=== PATIENT | female | born 1935 | race Caucasian/White ===

== ENCOUNTER 2020-05-09 13:10 | Observation (INO) | payer MEDICARE, OTHER ==
[~2020-05-09] VITALS: Ht 170.2 cm; Wt 96.9 kg
[2020-05-09] MEDS ORDERED: IV NORMAL SALINE 1,000ML 1,000 ML IV SCH (13:13)
--- NOTE | 2020-05-09 13:14 | PHYS DOC ---
Past History Past Medical History: Asthma, Diabetes Past Medical History thyroid Past Surgical History: Cholecystectomy, Hysterectomy Past Surgical History lumpectomy Smoking: Non-smoker Alcohol Use: None Drug Use: None General Adult EDM: Chief Complaint: DIARRHEA HPI: HPI: Patient is an 85 year old female who presents via EMS for evaluation of diffuse mid and lower abdominal discomfort as well as recurrent episodes of diarrhea. Pt at least 6 diarrhea stools since last night. She describes them as dark brown in color. Patient is in mild to moderate distress on arrival. She is complaining of hot and cold flashes as well as sweats. She denies chest pain but has chronic mild shortness of air. Dr. Soliz is her physician Review of Systems: Review of Systems: Constitutional: Denies fever but has chills Eyes: Denies change in visual acuity HENT: Denies nasal congestion or sore throat Respiratory: Denies cough or shortness of breath Cardiovascular: Denies chest pain or edema GI: has lower abdominal pain, no nausea, vomiting, bloody stools or but has recurrent diarrhea : Denies dysuria Musculoskeletal: Denies back pain or joint pain Integument: Denies rash Neurologic: Denies headache, focal weakness or sensory changes Endocrine: Denies polyuria or polydipsia Lymphatic: Denies swollen glands Psychiatric: Denies depression or anxiety Heart Score: Risk Factors: Risk Factors: DM, Current or recent (<one month) smoker, HTN, HLP, family history of CAD, obesity. Risk Scores: Score 0 - 3: 2.5% MACE over next 6 weeks - Discharge Home Score 4 - 6: 20.3% MACE over next 6 weeks - Admit for Clinical Observation Score 7 - 10: 72.7% MACE over next 6 weeks - Early Invasive Strategies Physical Exam: PE: Constitutional: Well developed, well nourished, moderate acute distress, non- toxic appearance. [] HENT: Normocephalic, atraumatic, bilateral external ears normal, oropharynx moist, no oral exudates, nose normal. [] Eyes: PERRL, EOMI, conjunctiva normal, no discharge. [] Neck: Normal range of motion, no tenderness, supple, no stridor. [] Cardiovascular:Heart rate regular rhythm, no murmur [] Lungs & Thorax: Bilateral breath sounds clear to auscultation [] Abdomen: Bowel sounds diminished, soft, tenderness lower abdomen, no masses, no pulsatile masses. [] Skin: Warm, dry, no erythema, no rash. [] Back: No tenderness. [] Extremities: No tenderness, no cyanosis, no edema. [] Neurologic: Alert and oriented, normal motor function, normal sensory function, no focal deficits noted. [] Psychologic: Affect normal, judgement normal, mood normal. [] Current Patient Data: Labs: Laboratory Tests Test 05/09/20 13:28 05/09/20 14:50 White Blood Count 9.8 x10^3/uL Red Blood Count 4.95 x10^6/uL Hemoglobin 14.5 g/dL Hematocrit 44.7 % Mean Corpuscular Volume 90 fL Mean Corpuscular Hemoglobin 29 pg Mean Corpuscular Hemoglobin Concent 32 g/dL Red Cell Distribution Width 14.5 % Platelet Count 226 x10^3/uL Neutrophils (%) (Auto) 51 % Lymphocytes (%) (Auto) 40 % Monocytes (%) (Auto) 6 % Eosinophils (%) (Auto) 2 % Basophils (%) (Auto) 1 % Neutrophils # (Auto) 5.0 x10^3uL Lymphocytes # (Auto) 3.9 x10^3/uL Monocytes # (Auto) 0.6 x10^3/uL Eosinophils # (Auto) 0.2 x10^3/uL Basophils # (Auto) 0.0 x10^3/uL Sodium Level 142 mmol/L Potassium Level 4.3 mmol/L Chloride Level 104 mmol/L Carbon Dioxide Level 26 mmol/L Anion Gap 12 Blood Urea Nitrogen 21 mg/dL Creatinine 1.4 mg/dL Estimated GFR (Cockcroft-Gault) 35.9 BUN/Creatinine Ratio 15 Glucose Level 117 mg/dL Calcium Level 9.0 mg/dL Total Bilirubin 0.5 mg/dL Aspartate Amino Transf (AST/SGOT) 37 U/L Alanine Aminotransferase (ALT/SGPT) 73 U/L Alkaline Phosphatase 200 U/L Troponin I Quantitative < 0.017 ng/mL Total Protein 6.7 g/dL Albumin 3.6 g/dL Albumin/Globulin Ratio 1.2 Lipase 137 U/L Urine Collection Type Void Urine Color Yellow Urine Clarity Hazy Urine pH 5.0 Urine Specific [place] >=1.030 Urine Protein Neg Urine Glucose (UA) Neg mg/dL Urine Ketones (Stick) Trace mg/dL Urine Blood Neg Urine Nitrite Pos Urine Bilirubin Neg Urine Urobilinogen Dipstick 0.2 mg/dL Urine Leukocyte Esterase Trace Urine RBC Occ /HPF Urine WBC 20-40 /HPF Urine Squamous Epithelial Cells Mod /LPF Urine Bacteria Mod /HPF Current Medications Medications (Trade) Dose Ordered Sig/[place] Route PRN Reason Start Time Stop Time Status Last Admin Dose Admin Sodium Chloride 1,000 ml @ 100 mls/hr Q10H IV 05/09/20 13:13 05/09/20 23:12 05/09/20 13:13 Ceftriaxone Sodium 1 gm/ Sodium Chloride 50 ml @ 100 mls/hr 1X ONCE IV 05/09/20 15:45 05/09/20 16:14 Sodium Chloride 50 ml @ As Directed STK-MED ONCE .ROUTE 05/09/20 15:55 05/09/20 15:55 DC Ceftriaxone Sodium (Rocephin) 1 gm STK-MED ONCE .ROUTE 05/09/20 15:55 05/09/20 15:55 DC EKG: EKG: EKG is normal sinus rhythm, rate 68, leftward axis, otherwise unremarkable EKG, not STEMI read at 1323 PM [] Radiology/Procedures: Radiology/Procedures: [place] [id number] IMAGING REPORT Signed PATIENT: JUSTIN COOPER ACCOUNT: [id number] : 1935 LOCATION: ER AGE: 85 SEX: F EXAM STATUS: REG ER ORD. PHYSICIAN: JHON VERONICA DO REASON: diffuse pain, diarrhea PROCEDURE: CT ABDOMEN PELVIS WO CONTRAST CT of the abdomen and pelvis without contrast 05/09/2020 INDICATION: 85-year-old female with diffuse abdominal pain and diarrhea. COMPARISON STUDY: None available. TECHNIQUE: Multidetector CT imaging of the abdomen and pelvis is obtained without the administration of IV contrast. FINDINGS: Patchy opacities in bilateral lung bases likely represent mild atelectasis. The gallbladder is surgically absent. The liver is otherwise unremarkable. Spleen is unremarkable. Small adrenal nodules noted on the right measuring 1.3 cm in diameter. Attenuation characteristics are nonspecific. Pancreas is unremarkable. There is a 2.1 cm hypodensity arising from the superior left kidney with attenuation characteristics suggestive of a simple cyst. Similar findings are seen in the medial right kidney with a cyst measuring up to 2.2 cm in diameter. Probable small hemorrhagic cyst seen in the superior right kidney measuring up to 8 mm in diameter. There is a 1.9 cm cyst in superior pole of the right kidney. There is no evidence of bowel obstruction. No acute inflammatory change involving the bowel is identified. Diffuse colonic diverticulosis is noted. No CT evidence of acute diverticulitis is seen. The appendix is normal in appearance. There are scattered mesenteric lymph nodes seen throughout the mesentery, somewhat more prominent than is commonly seen. Mildly enlarged lymph nodes are seen in the jen hepatis in the epigastrium. Reference lymph node can be seen on coronal image 47 measuring 1.6 cm in long axis diameter and 1.2 cm in short axis diameter. Mild mesenteric fat stranding is seen surrounding lymph nodes in the left lower quadrant. No acute osseous of abnormality is identified. IMPRESSION: 1. Diffuse mildly prominent mesenteric adenopathy with mildly enlarged lymph nodes seen in the jen hepatis and epigastrium. Mild associated fat stranding the left lower quadrant noted. Findings may be reactive. An atypical mesenteric adenitis could be considered. Metastatic disease or lymphoproliferative disorder such as lymphoma cannot be completely excluded. Consider 3 month follow-up exam to ensure stability and/or resolution. Based on clinical history, a follow-up PET/CT could also be considered. 2. Colonic diverticulosis without evidence of diverticulitis. CT DOSING PQRS STATEMENT: One or more of the following individualized dose reduction techniques were utilized for this examination: 1. Automated exposure control 2. Adjustment of the mA and/or kV according to patient size 3. Use of iterative reconstruction technique Electronically signed by: Jose Rafael Burkett MD (05/09/2020 3:40 PM) [id number] DICTATED AND SIGNED BY: JOSE RAFAEL BURKETT MD DATE: 05/09/20 [id number] CC: ARNAV SOLIZ MD; JHON VERONICA DO ~ Course & Med Decision Making: Course & Med Decision Making Pertinent Labs and Imaging studies reviewed. (See chart for details) [] Gamal Disclaimer: Gamal Disclaimer: This electronic medical record was generated, in whole or in part, using a voice recognition dictation system. [id number] Dr. Soliz called back to discuss case. Patient will admitted for s tabilization including IV antibiotics including Flagyl as well as Rocephin. Patient has mesenteric adenitis with recurrent episodes of diarrhea noted on CT scan. Furthermore patient has an obvious urinary tract infection. Patient is weak and has trouble standing and walking. Departure Departure: Impression: Primary Impression: Generalized abdominal pain Additional Impressions: Mesenteric adenitis Diarrhea Qualified Codes: R19.7 - Diarrhea, unspecified Acute UTI Disposition: ADMITTED INPATIENT Admitting Physician: Arnav Soliz Condition: STABLE Referrals: ARNAV SOLIZ MD (PCP) Justification of Admission: Justification of Admission: Justification of Admission Dx: N/A JHON VERONICA DO May 09, 2020 13:14
[2020-05-09 13:57] LABS: BASO % 1 % (0-3); EOS # 0.2 x10^3/uL (0.0-0.7); EOS % 2 % (0-3); HEMATOCRIT 44.7 % (36.0-47.0); HEMOGLOBIN 14.5 g/dL (12.0-15.5); LYMPH # 3.9 x10^3/uL (1.0-4.8); LYMPH % 40 % (24-48); MEAN CORPUSCULAR HEMOGLOBIN 29 pg (25-35); MEAN CORPUSCULAR HGB CONC 32 g/dL (31-37); MEAN CORPUSCULAR VOLUME 90 fL (79-100); MONO # 0.6 x10^3/uL (0.0-1.1); MONO % 6 % (0-9); NEUT % 51 % (31-73); PLATELET COUNT 226 x10^3/uL (140-400); RED BLOOD COUNT 4.95 x10^6/uL (3.50-5.40); RED CELL DISTRIBUTION WIDTH 14.5 % (11.5-14.5); WHITE BLOOD COUNT 9.8 x10^3/uL (4.0-11.0)
[2020-05-09 14:09] LABS: CREATININE 1.4 mg/dL (0.6-1.0); GFR 35.9; POTASSIUM 4.3 mmol/L (3.5-5.1)
[2020-05-09 14:17] LABS: ALBUMIN 3.6 g/dL (3.4-5.0); ALBUMIN/GLOBULIN RATIO 1.2 (1.0-1.7); TOTAL BILIRUBIN 0.5 mg/dL (0.2-1.0); TOTAL PROTEIN 6.7 g/dL (6.4-8.2)
[2020-05-09 15:32] LABS: BILIRUBIN,URINE NEG (NEG); CLARITY,URINE HAZY; COLOR,URINE YELLOW; GLUCOSE,URINE NEG (NEG)
[2020-05-09 15:33] LABS: BACTERIA,URINE MOD /HPF (0-FEW); NITRITE,URINE POS (NEG); RBC,URINE OCC /HPF (0-2); SQUAMOUS EPITHELIAL CELL,UR MOD /LPF; UROBILINOGEN,URINE 0.2 mg/dL (0.2 mg/dL); WBC,URINE 20-40 /HPF (0-4)
--- NOTE | 2020-05-09 15:44 | RAD ---
CT of the abdomen and pelvis without contrast 05/09/2020 INDICATION: 85-year-old female with diffuse abdominal pain and diarrhea. COMPARISON STUDY: None available. TECHNIQUE: Multidetector CT imaging of the abdomen and pelvis is obtained without the administration of IV contrast. FINDINGS: Patchy opacities in bilateral lung bases likely represent mild atelectasis. The gallbladder is surgically absent. The liver is otherwise unremarkable. Spleen is unremarkable. Small adrenal nodules noted on the right measuring 1.3 cm in diameter. Attenuation characteristics are nonspecific. Pancreas is unremarkable. There is a 2.1 cm hypodensity arising from the superior left kidney with attenuation characteristics suggestive of a simple cyst. Similar findings are seen in the medial right kidney with a cyst measuring up to 2.2 cm in diameter. Probable small hemorrhagic cyst seen in the superior right kidney measuring up to 8 mm in diameter. There is a 1.9 cm cyst in superior pole of the right kidney. There is no evidence of bowel obstruction. No acute inflammatory change involving the bowel is identified. Diffuse colonic diverticulosis is noted. No CT evidence of acute diverticulitis is seen. The appendix is normal in appearance. There are scattered mesenteric lymph nodes seen throughout the mesentery, somewhat more prominent than is commonly seen. Mildly enlarged lymph nodes are seen in the jen hepatis in the epigastrium. Reference lymph node can be seen on coronal image 47 measuring 1.6 cm in long axis diameter and 1.2 cm in short axis diameter. Mild mesenteric fat stranding is seen surrounding lymph nodes in the left lower quadrant. No acute osseous of abnormality is identified. IMPRESSION: 1. Diffuse mildly prominent mesenteric adenopathy with mildly enlarged lymph nodes seen in the jen hepatis and epigastrium. Mild associated fat stranding the left lower quadrant noted. Findings may be reactive. An atypical mesenteric adenitis could be considered. Metastatic disease or lymphoproliferative disorder such as lymphoma cannot be completely excluded. Consider 3 month follow-up exam to ensure stability and/or resolution. Based on clinical history, a follow-up PET/CT could also be considered. 2. Colonic diverticulosis without evidence of diverticulitis. CT DOSING PQRS STATEMENT: One or more of the following individualized dose reduction techniques were utilized for this examination: 1. Automated exposure control 2. Adjustment of the mA and/or kV according to patient size 3. Use of iterative reconstruction technique Electronically signed by: Jose Rafael Edouard MD (05/09/2020 3:40 PM) [id number]
[2020-05-09] MEDS ORDERED: cefTRIAXone SODIUM 1 GM VIAL ONE (15:55)
[2020-05-09] MEDS ORDERED: IV NORMAL SALINE 50ML 50 ML ONE (15:55)
--- NOTE | 2020-05-09 17:36 | EKG ---
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
[2020-05-09 18:48] VITALS: BP 147/94
[2020-05-09] MEDS ORDERED: GLIP5TAB10 PO (19:06)
[2020-05-09] MEDS ORDERED: VIT1CAPS12 PO (19:06)
[2020-05-09] MEDS ORDERED: ASPI-889 PO (19:06)
[2020-05-09] MEDS ORDERED: IPRA12.9 IH (19:06)
[2020-05-09] MEDS ORDERED: LEVO100T5 PO (19:06)
[2020-05-09] MEDS ORDERED: METF500T16 PO (19:06)
[2020-05-09 20:20] LABS: FECAL OB PT NEGATIVE (NEG)
[2020-05-09] MEDS ORDERED: NON FORMULARY ITEM (Ipratropium Bromide (Atrovent Hfa) 2 PUFF) IH PRN (21:15)
--- NOTE | 2020-05-09 21:21 | NUR ---
The patient, JUSTIN COOPER, 85 y/o, F admitted by ARNAV SOLIZ MD, was given written information regarding hospital policies, unit procedures and contact persons. Pt accompanied onto the unit by EMS personnel and nursing staff via [facility]. Pt able to transfer self from rney to bed independently. Vitals signs assessed and stable. Pt reports that she ate a lean cuisine meal last night and the meat did not taste right. Around 0630 this am, pt started to multiple loose stools. Pt denies any pain and discomfort at this time. Pt oriented to room and call light. Valuables were checked and left in room with pt. Call light within reach.
[2020-05-09] MEDS ORDERED: ASPIRIN ENTERIC COATED 81 MG TABLET.DR. PO SCH (21:30)
[2020-05-09] MEDS ORDERED: IPRATROPIUM BROMIDE 0.5 MG/2.5 ML NEBU. NEB PRN (21:30)
[2020-05-09 23:29] VITALS: BP 156/87
[2020-05-10] MEDS ORDERED: DEXTROSE 50% 25 GM / 50ML DISP.SYRIN. IV PRN (04:45)
[2020-05-10] MEDS ORDERED: LEVOTHYROXINE 100 MCG TABLET PO SCH (06:00)
[2020-05-10 06:14] VITALS: BP 148/72
[2020-05-10] MEDS: INSULIN LISPRO 300 UNITS/3 ML VIAL. SQ SCH ×2 (07:39→12:00)
[2020-05-10] MEDS ORDERED: glipiZIDE 5 MG TABLET PO SCH (08:00)
[2020-05-10] MEDS ORDERED: IPRATRPIUM/ALBUTEROL 0.5/2.5MG 3 ML NEBU. NEB PRN (08:00)
--- NOTE | 2020-05-10 10:00 | NUR ---
IP: patient tested fro c. diff. requires contact + precautions until c diff ruled out.
[2020-05-10 11:00] VITALS: BP_SYST 129; BP_SYST 134; BP_DIAS 74; BP_DIAS 77
--- NOTE | 2020-05-10 12:26 | HP ---
ADMIT DATE: 05/09/2020 HISTORY OF PRESENT ILLNESS: An 85-year-old white female who came in through the Emergency Room with increased nausea and vomiting, unable to hold anything down with severe lower abdominal discomfort as well as severe diarrhea. The patient had been eating some ____ that she thought tasted very bad and as a result of this, stopped eating it and spit it out. The patient did complain of hot and cold flashes as well as some sweats, but denied chest pain or shortness of breath. She had at least 6 stools during the last night and the patient became increasingly dehydrated and unable to keep fluids or anything down and therefore came in through the Emergency Room and found to be markedly dehydrated as well as having significant pain in her abdomen. She was admitted for such. PAST MEDICAL HISTORY: Asthma, diverticulitis, abdominal surgery, cholecystectomy, right breast lumpectomy, hysterectomy, endocrine disorders, diabetes, hypothyroidism. FAMILY HISTORY: Prostate cancer in a brother. Father with MS. Mother with diabetes and brother with colon cancer. ALLERGIES: STATINS, COA REDUCTASE ____ SULFA DRUGS. SOCIAL HISTORY: Denies smoking, alcohol or drug use. Full code. REVIEW OF SYSTEMS: The patient denies any headaches, visual change, blurred vision, double vision, shortness of breath or chest pain. Does have abdominal pain, primarily cramping sensation in her abdomen. Denies any melena, hematochezia, or hematemesis. Does have nausea and retching. The patient otherwise neurologically stable and urinating okay. MEDICATIONS: Include Atrovent, aspirin, metformin 500 b.i.d. for diabetes, glipizide 5 mg daily, levothyroxine and a vitamin supplement. PHYSICAL EXAMINATION: GENERAL: The patient on exam is a very pleasant white female. VITAL SIGNS: Blood pressure 148/72, respiratory rate 20, pulse 70, afebrile. HEENT: The patient's head was atraumatic, normocephalic. Eyes: PERRLA without jaundice. The mouth and throat were normal. NECK: Supple, without JVD or thyromegaly. LUNGS: Diminished throughout, but clear. CARDIOVASCULAR: Regular sinus rhythm. ABDOMEN: Protuberant, soft, tender throughout, but no rebounding or guarding. Positive bowel sounds. Stool, hemoccult negative. EXTREMITIES: No clubbing, cyanosis, nor edema. NEUROLOGIC: The patient was alert and oriented x 3. LABORATORY DATA: The patient's labs show white count of 9.8, hemoglobin 14 and hematocrit 44. Sodium and potassium 142 and 4.3, BUN and creatinine 21 and 1.4. Blood sugars 113 and 120, alkaline phosphatase elevated as was her ALT to 73. Otherwise, her urine did show 20-40 white blood cells and negative blood in the stool. PLAN: The patient will be admitted for further evaluation of her dehydration, abdominal pain, possible food poisoning, urinary tract infection, mild renal insufficiency, hyperglycemia and the like. IMPRESSION: Therefore, food poisoning with gastroenteritis, elevated liver enzymes, hyperkalemia, chronic kidney disease stage 3, urinary tract infection. The patient will be admitted, placed on IV fluids, IV antibiotic therapy and make further evaluation on her as indicated. Blood pressure is 148/72, respiratory rate 20, pulse 70. She has been afebrile throughout. ARNAV SOLIZ MD DR: EMILIA/maya JOB#: [id number] / [id number]
--- NOTE | 2020-05-10 13:08 | NUR ---
Patient is D/C home with self care. Patient is stable at time of discharge. IV is removed and patient has all belongings with self at time of discharge. Patient ambulated off of unit accompanied by staff.
== END 2020-05-10 13:08 | disposition home or self-care (01) ==
LOC: ER 13:10 → 1 SOUTH 16:30 → INTOOBSV 16:30
PROVIDERS: ADMIT Family Medicine; ATTEND Family Medicine
DX: I88.0 Nonspecific mesenteric lymphadenitis (principal); R19.7 Diarrhea, unspecified; E87.5 Hyperkalemia; E03.9 Hypothyroidism, unspecified; E86.0 Dehydration; N18.3 Chronic kidney disease, stage 3 (moderate); E11.22 Type 2 diabetes mellitus with diabetic chronic kidney disease; J45.909 Unspecified asthma, uncomplicated; N39.0 Urinary tract infection, site not specified; K57.30 Diverticulosis of large intestine without perforation or abscess without bleeding; Z90.49 Acquired absence of other specified parts of digestive tract; Z90.710 Acquired absence of both cervix and uterus; Z98.890 Other specified postprocedural states
CPT/HCPCS: 36415; 74176; 80053; 81001; 82274; 82947; 83690; 84484; 85025; 87493; 93005; 96361; 96365; 96367; 97116; 97162; 97165; 97530; 99285; G0378; J0696; J1815; J3490; J7030; G0379

== ENCOUNTER → 2020-05-26 | Outpatient (CLI) | payer MEDICARE, OTHER ==
[2020-05-10 11:00] VITALS: BP 134/77
[~2020-05-26] MED LIST: ASPI-889 PO; GLIP5TAB10 PO; IPRA12.9 IH; LEVO100T5 PO; METF500T16 PO; VIT1CAPS12 PO
--- NOTE | 2020-05-26 12:52 | RAD ---
EXAM: Head CT without contrast. HISTORY: Seizure-like activity. TECHNIQUE: Computed tomographic images of the head were obtained without contrast. *One or more of the following individualized dose reduction techniques were utilized for this examination: 1. Automated exposure control. 2. Adjustment of the mA and/or kV according to patient size. 3. Use of iterative reconstruction technique. COMPARISON: None. FINDINGS: There is no acute or subacute extra-axial or intraparenchymal hemorrhage. There is no mass effect or midline shift. There is no hydrocephalus. There are areas of decreased attenuation within the cerebral white matter, nonspecific and likely related to chronic small vessel disease. There is age-appropriate cerebral volume loss. The visualized portions of the orbits, paranasal sinuses and mastoid air cells are unremarkable. No suspicious calvarial lesion is seen. IMPRESSION: No acute intracranial findings. Electronically signed by: Monique Burgos MD (05/26/2020 12:49 PM) [facility]
== END | disposition home or self-care (01) ==
LOC: CT 12:33
PROVIDERS: ATTEND Family Medicine
DX: G40.89 Other seizures (principal)
CPT/HCPCS: 70450

== ENCOUNTER → 2020-09-01 | Outpatient (CLI) | payer MEDICARE, OTHER ==
[2020-05-10 11:00] VITALS: BP 134/77
[~2020-09-01] MED LIST changes: +IOHEXOL 240 MG/ML 50ML VIAL. ONE
--- NOTE | 2020-09-01 17:36 | RAD ---
PQRS Compliance Statement: One or more of the following individualized dose reduction techniques were utilized for this examination: 1. Automated exposure control 2. Adjustment of the mA and/or kV according to patient size 3. Use of iterative reconstruction technique CT ABDOMEN PELVIS WO CONTRAST Clinical Indication: Reason: ABNORMAL CT IN SEPT HX: HYSTERECTOMY, CHOLECYSTECTOMY Comparison: CT abdomen and pelvis without contrast, May 09, 2020. Technique: Helical CT imaging of the abdomen and pelvis is performed without IV or oral contrast. Findings: Evaluation of solid organs and bowel is limited without oral and IV contrast, decreasing sensitivity for detection of pathology. There is minimal atelectasis or scarring in the lung bases. There is a stable 3 mm nodule in the left lower lobe, image 13. The cardiac size is normal. Cholecystectomy. The liver, spleen, pancreas, and left adrenal gland are normal. 1 cm nodule of the right adrenal gland is stable, indeterminate. Atherosclerotic abdominal aorta, no aneurysm. Small hyperdensity of the upper pole of the right kidney is stable. Fluid density right renal cysts are stable and do not require follow-up. Cannot exclude a solid mass versus hyperdense cyst versus dromedary hump in the anterior interpolar left kidney, image 51. There is no hydronephrosis. Mild periceliac and jen hepatis adenopathy is slightly worse. Mild mesenteric adenopathy is worse. For example right lower quadrant lymph node measures 1.1 x 1.7 cm, previously measuring 5 mm. No obvious abnormality of the stomach. There is no small bowel obstruction. The appendix is normal. There is moderate colon diverticulosis. No colon wall thickening is identified. Urinary bladder is completely decompressed, limiting evaluation. Hysterectomy. No pelvic free fluid. No inguinal adenopathy. There is degenerative spondylosis of L5/S1. There is hemangioma of the T10 vertebral body. There is arthropathy of the left hip. IMPRESSION: 1. Mild periceliac, jen hepatis, and mesenteric adenopathy is worse most apparent in the right lower quadrant. This makes metastatic disease or lymphoproliferative disorder more likely. FDG PET/CT may be useful. 2. In the left kidney there is a possible small mass versus dromedary hump versus hyperdense cyst. Recommend further evaluation with renal ultrasound. 3. There is stable small indeterminate right adrenal nodule. 4. Moderate colon diverticulosis. Electronically signed by: Dale Donis MD (09/01/2020 5:34 PM) [id number]
== END ==
LOC: CT 10:01
PROVIDERS: ATTEND Internal Medicine Gastroenterology
DX: K57.30 Diverticulosis of large intestine without perforation or abscess without bleeding (principal); R91.1 Solitary pulmonary nodule; J98.4 Other disorders of lung
CPT/HCPCS: 74176

== ENCOUNTER → 2020-10-02 | Outpatient (CLI) | payer MEDICARE, OTHER ==
[2020-05-10 11:00] VITALS: BP 134/77
[~2020-10-02] MED LIST changes: -IOHEXOL 240 MG/ML 50ML VIAL. ONE
--- NOTE | 2020-10-02 10:47 | RAD ---
EXAM: Renal sonogram. HISTORY: Abnormal lesion on CT. TECHNIQUE: Sonographic imaging of the kidneys and bladder was performed. COMPARISON: CT dated 09/01/2020. FINDINGS: The kidneys are normal in size. There is a 1.9 cm simple appearing cyst within the right ki dney. There is a smaller suspected cystic lesion with internal echoes measuring 8 mm within the right kidney. No solid or cystic lesion is seen within the left kidney. This favors a dromedary hump withi n the mid zone on the prior CT. There is no hydronephrosis. The bladder is decompressed and unremarka ble. IMPRESSION: 1. 1.9 cm simple appearing right renal cyst and 8 mm suspected complicated right renal cyst. Note is made of a third lesion within the right kidney on the recent CT which demonstrates no clear sonograph ic correlate. This remains indeterminant. Renal protocol CT or MRI can be performed to exclude a susana d or additional complex cystic lesion. 2. No suspicious sonographic correlate for nodularity within the left kidney on the recent CT. Once a gain, renal cortical CT or MRI can be performed to exclude a solid or complex cystic lesion. 3. No hydronephrosis. Electronically signed by: Monique Burgos MD (10/02/2020 10:44 AM) [id number]
== END ==
LOC: US 09:26
PROVIDERS: ATTEND Family Medicine
DX: D49.512 Neoplasm of unspecified behavior of left kidney (principal); N28.1 Cyst of kidney, acquired; N28.89 Other specified disorders of kidney and ureter
CPT/HCPCS: 76770